=== PATIENT | male | born 2000 | race Caucasian/White ===

== ENCOUNTER 2021-07-19 03:03 | Emergency (ER) | payer SELFPAY ==
[2021-07-19 03:20] VITALS: BP 131/77; PULSE 78; RESP 16; TEMP 36.5; O2SAT 98; BMI 23.3
--- NOTE | 2021-07-19 03:34 | ED.MALEGU ---
HPI - Male Genitourinary General Chief complaint: Urogenital-Male Stated complaint: Std Check Time Seen by Provider: 07/19/21 03:20 Source: patient Mode of arrival: ambulatory Limitations: no limitations History of Present Illness Complaint: penile discharge and dysuria Onset (ago): day(s) (7) Duration: constant Location: penis Radiation: penis Severity: mild Quality: burning Relieving factors: none Exacerbating factors: none Context: new sexual partner Associated symptoms: Reports denies other symptoms and discharge Related Data Previous Rx's Medication Instructions Recorded doxycycline hyclate 100 mg capsule 100 mg PO BID 7 Days #14 cap 07/19/21 Allergies Allergy/AdvReac Type Severity Reaction Status Date / Time No Known Allergies Allergy Verified 07/19/21 03:19 Review of Systems Review of Systems: Constitutional : No Fever, No Chills, Cardiovascular : No Chest Pain, No SOB Respiratory : No Dyspnea Gastrointestinal : No abdominal pain : pos dysuria, pos drainage Musculoskeletal : No Joint Swelling Skin : No rash, positive skin laceration Neuro : No Weakness, No Numbness PMFSH Past Medical History Medical History (Updated 07/19/21 @ 03:42 by Sindi Ortega DO) No known health problems Social History Social History Advance Directives: No Advance Directives Information Provided: Yes Physical Exam Vital Signs: Vital Signs: Last Vital Signs Temp 97.7 F 07/19/21 03:20 Pulse 78 07/19/21 03:20 Resp 16 07/19/21 03:20 BP 131/77 07/19/21 03:20 Pulse Ox 98 07/19/21 03:20 Body Mass Index 23.3 Appearance: Alert. Oriented X3. No acute distress. Eyes: Pupils equal, round and reactive to light. ENT: Pharynx normal. Neck: Normal inspection. Neck supple. CVS:Pulses normal. Respiratory: No respiratory distress. Abdomen: Soft and non-tender : deferred. Skin: Skin warm and dry. Normal skin color. Extremities: No lower extremity edema. Neuro: Oriented X 3. No motor deficit. No sensory deficit. MDM - Male Genitourinary MDM Narrative Medical decision making narrative: 21 yo male otherwise healthy new sexual partner here with some dysuria and discharge from penis x 1 week - will give ceftriaxone and doxy discussed safe sex, stable for DC Lab Data Labs: Lab Results 07/19/21 Range/Units 03:24 Urine Color YELLOW Urine Appearance CLEAR Urine pH 6.0 (5.0-8.0) Ur Specific [place] 1.010 (1.005-1.025) Urine Protein NEG (NEG-TRACE) MG/DL Urine Glucose (UA) NEG (NEG) MG/DL Urine Ketones NEG (NEG) MG/DL Urine Blood NEG (NEG) Urine Nitrite NEG (NEG) Ur Leukocyte Esterase 1+ H (NEG) Discharge Plan Discharge Clinical Impression: Urethritis Patient Disposition: Home, Self-Care Instructions: Sexually Transmitted Diseases (ED), Safe Sex Practices (ED) Additional Instructions: return to ED for any worsening symptoms or concerns no sex for 10 days notify partners Prescriptions: New doxycycline hyclate 100 mg capsule 100 mg PO BID 7 Days Qty: 14 RF: 0
[2021-07-19 03:36] LABS: Appearance Urine CLEAR; Color Urine YELLOW; Glucose Urine UA NEG (NEG); Leukocyte Esterase Urine 1+ (NEG); Nitrite Urine NEG (NEG); UACC Culture Trigger YES; Urine Blood NEG (NEG); Urine Ketones NEG (NEG); Urine Protein NEG (NEG-TRACE)
[2021-07-19 03:45] LABS: Bacteria Urine TRACE /LPF; RBC Urine 0-2 /HPF (0)
[2021-07-19] MEDS: cefTRIAXone sodium 500 MG, Lidocaine HCl 1 % MPF 1 ML IM (03:48)
[2021-07-19 03:55] VITALS: BP 122/66; PULSE 72; O2SAT 98
[2021-07-19 05:22] LABS: CT PCR NOT DETECTED (Not Detect.); NG PCR DETECTED (Not Detect.)
== END 2021-07-19 03:56 | disposition home or self-care (01) ==
LOC: HO.ED 03:48
PROVIDERS: Emergency Provider Emergency Medicine
DX: A54.01 Gonococcal cystitis and urethritis, unspecified (principal)
CPT/HCPCS: 81001; 87086; 87491; 87591; 96372; 99284; J0696

== ENCOUNTER 2022-01-18 02:03 | Emergency (ER) | payer BC, SELFPAY ==
[2022-01-18 02:10] VITALS: BP 148/72; PULSE 98; RESP 18; TEMP 36.9; O2SAT 100; BMI 23.1
--- NOTE | 2022-01-18 03:12 | ED.MALEGU ---
HPI - Male Genitourinary General Chief complaint: Urogenital-Male Stated complaint: Pain when peeing Time Seen by Provider: 01/18/22 03:12 Source: patient Mode of arrival: ambulatory History of Present Illness HPI Narrative: 21-year-old male without significant past medical history presents with complaints unprotected sexual intercourse 2 nights ago, and now reports a yellow discharge from his penis as well as feeling like he is peeing rocks . He denies any anal intercourse or sounding. He denies any testicular / scrotal pain, fevers, or chills. Related Data Previous Rx's Medication Instructions Recorded doxycycline hyclate 100 mg capsule 100 mg PO BID 7 Days #14 cap 07/19/21 doxycycline hyclate 100 mg capsule 100 mg PO BID 7 Days #14 cap 01/18/22 Allergies Allergy/AdvReac Type Severity Reaction Status Date / Time No Known Allergies Allergy Verified 01/18/22 02:10 Review of Systems Review of Systems: Pertinent positives and negatives as stated in HPI 10 point review of systems is otherwise neg PMFSH Past Medical History Source: nursing notes reviewed Medical History No known health problems Social History Social History Advance Directives: No Advance Directives Information Provided: Yes Physical Exam Vital Signs: Vital Signs: Last Vital Signs Temp 98.4 F 01/18/22 02:10 Pulse 98 01/18/22 02:10 Resp 18 01/18/22 02:10 BP 148/72 H 01/18/22 02:10 Pulse Ox 100 01/18/22 02:10 BMI result Body Mass Index 23.1 VITAL SIGNS: Reviewed. GENERAL: Well developed, well nourished, in no acute distress. HEAD: Normocephalic/atraumatic EYES: PERRLA, EOMI EARS: Ext canals without abnormality OROPHARYNX: no oral lesions noted, posterior pharynx clear LUNGS: Normal breath sounds. No adventitious sounds or accessory muscle use. SpO2<100> CARDIOVASCULAR: Regular rate and rhythm without noted murmurs ABDOMEN: Soft, non-tender, non-distended with bowel sounds. NEUROLOGIC: Alert and oriented x 4. Course Course Course Narrative: 21-year-old male with history and clinical presentation most consistent with STI in doubt UTI. No evidence to suggest epididymitis at this time and patient was empirically treated for gonorrhea/ chlamydia and instructed on abstinence for 7 days and placed on remaining course of antibiotics. In addition, patient was instructed he needs to tell all sexual partners. Discharge Plan Discharge Clinical Impression: Urethritis Patient Disposition: Home, Self-Care Instructions: Chlamydia (ED), Gonorrhea (ED) Additional Instructions: 1. Complete the entire course of antibiotics. You must inform your sexual partners. 2. Refrain from sexual relations for the next 7 days. 3. Follow-up with primary care provider. Return to the ER for worsening symptoms. Prescriptions: New doxycycline hyclate 100 mg capsule 100 mg PO BID 7 Days Qty: 14 0RF No Action doxycycline hyclate 100 mg capsule 100 mg PO BID 7 Days Qty: 14 0RF
[2022-01-18 03:25] LABS: Appearance Urine CLOUDY; Color Urine YELLOW; Glucose Urine UA NEG (NEG); Leukocyte Esterase Urine TRACE (NEG); Nitrite Urine NEG (NEG); PH 7.5 (5.0-8.0); UACC Culture Trigger NO; Urine Blood TRACE (NEG); Urine Ketones NEG (NEG); Urine Protein NEG (NEG-TRACE)
[2022-01-18 03:38] LABS: UACC CULT YES; WBC Urine 30-49 /HPF (0-4)
[2022-01-18 03:39] LABS: Bacteria Urine TRACE /LPF
[2022-01-18] MEDS: cefTRIAXone sodium 500 MG, Lidocaine HCl 1 % MPF 1 ML IM (03:48)
[2022-01-18 04:59] LABS: CT PCR NOT DETECTED (Not Detect.); NG PCR DETECTED (Not Detect.)
== END 2022-01-18 03:56 | disposition home or self-care (01) ==
PROVIDERS: Emergency Provider Student in an Organized Health Care Education/Training Program
DX: A54.01 Gonococcal cystitis and urethritis, unspecified (principal); Z72.51 High risk heterosexual behavior
CPT/HCPCS: 81001; 87086; 87491; 87591; 96372; 99281; 99284; J0696